=== PATIENT | female | born 1965 | race Hispanic/Latino ===

== ENCOUNTER → 2017-12-25 | Day surgery (SDC) | payer OTHER ==
--- NOTE | 2017-12-23 14:29 | History & Physical Pre-Op ---
General Information and HPI History of Present Illness: Desiree is a 52-year-old female with a long-standing and worsening complaint of a painful exostosis to her left foot. The patient has undergone an extended course of conservative care, including shoe gear and activity modification, rest , immobilization and courses of NSAIDs. None of this is yielded her any significant relief. The patient presents today for preoperative surgical consultation. The patient was referred to our office from Eric Velarde DPM. Allergies/Medications Allergies: Coded Allergies: MDX - Shellfish (SHELLFISH) (Intermediate, SWELLING 02/05/15) Past History Medical History Cardiovascular: AFIB, hypertension Endocrine: diabetes Surgical History Pertinent Surgical History: non-contributory Review of Systems Review of Systems: Unremarkable except for that noted in history of present illness Exam & Diagnostic Data Physical Exam: Lungs clear bilaterally. Heart sounds rate and rhythm regular. Lower extremity physical exam demonstrates intact pedal pulses bilaterally. Both dorsalis pedis and posterior tibial arteries are palpable bilaterally. Patient without any sensory motor deficits. Deep tendon reflexes grossly intact. Patient noted to have same and pain with palpation and dorsal perspective cuneiform joint left foot. Negative Tinel sign noted with percussion of the intermediate dorsal cutaneous nerve. Assessment/Plan Assessment/Plan: Painful exostosis left foot. A lengthy discussion reviewing both surgical and conservative options was held the patient at bedside and the patient elected to go forward with surgery despite the risks. As Ranked By This Provider Problem List: 1. Primary osteoarthritis, left ankle and foot Attending MD Review Statement Attending Statement Attending MD Statement: examined this patient
[~2017-12-25] VITALS: Ht 167.6 cm; Wt 63.5 kg
--- NOTE | 2017-12-25 08:25 | Operative Report ---
Operative/Inv Procedure Report Surgery Date: 12/25/17 Name of Procedure: 1 excision of soft tissue mass left foot 2 ostectomy left foot 3 Closure of open surgical wound local random advancement flap Pre-Operative Diagnosis: 1 painful, enlarging soft tissue mass left foot 2 Exostosis dorsal left foot Post-Operative Diagnosis: The same Estimated Blood Loss: scant Surgeon/Supervisor Last Model Department: [facility],Sid Velarde DPM Anesthesia: moderate sedation, block Operative/Procedure Note Note: After obtaining informed consent the patient was brought to the operating room and placed on the operating table in supine position. The patient isn't securely fastened to the operating table utilizing a safety belt. After administration of IV sedation, 10 mL of 0.5% Marcaine plain was infiltrated about the patient's left ankle. A well-padded ankle tourniquet was placed about the patient's left lower extremity. 2 g of Ancef were delivered intravenously times one dose. Left foot and ankle within scrubbed, prepped and draped in usual aseptic manner. The left lower extremity is elevated to examine to limb, which point the ankle tourniquet inflated to 250 mmHg. Attention directed dorsal aspect of the left foot, where a 5 cm curvilinear incision was made overlying the palpable soft tissue mass dorsally. The skin was signed 15 blade carried down subtenons tissues. All vital neurovascular structures were identified protected. The proximal margins of the lesion was then dissected free from the fascia and the dissection and continued distally at the underside of the lesion. A stalk identified from the knee tendon sheath overlying the extensor digitorum longus tendon this was then tied and the lesion was passed the operative field. Noted be 2 cm x 2 cm and firm to touch with a pale yellowish coloring. The dissection was then carried down to the periosteum overlying the exostosis was incised reflected. An osteotome and mallet was utilized to resect the prominent bone. Any rough edges were smoothed with a bone rasp. Nipple was then irrigated with cuff Svensson normal sterile saline. The deep tissues reapproximated 4-0 Vicryl and dorsal medial dorsal lateral flap was then developed with undermining, mobilization and advancement adjacent tissue centrally. The deep side of the flap was held with 4-0 Vicryl. The skin edges reprepped with 4-0 nylon. Incision was dressed with Xeroform, 4 x 4's, Kerlix and Guillermo wrap. The patient noted tolerate both procedure and anesthesia well and the patient was transported from the operative room to recovery via signs stable best assess intact to both the dorsal medial dorsal lateral flaps.
== END ==
LOC: STS 02:10
DX: M25.775 Osteophyte, left foot (principal); M67.471 Ganglion, right ankle and foot; M19.072 Primary osteoarthritis, left ankle and foot; G47.33 Obstructive sleep apnea (adult) (pediatric); F17.200 Nicotine dependence, unspecified, uncomplicated; J45.909 Unspecified asthma, uncomplicated
CPT/HCPCS: J0690; J1100; J2001; J2250; J3490